=== PATIENT | male | born 1930 | race Caucasian/White ===

== ENCOUNTER 2016-07-14 00:02 | Observation (INO) | payer MEDICARE, BC ==
[2016-07-14] VITALS (11 sets, daily range): BP systolic 118–155; BP diastolic 59–90; PULSE 68–88; RESP 16–20; TEMP 97.7–98.7; O2SAT 94–99
[~2016-07-14] VITALS: Ht 182.9 cm; Wt 85.2 kg
[~2016-07-14 00:02] MED LIST: ALTA1.256 PO; ASPI81TA82 PO; CENTTAB9 PO; CO Q30CA3 OR; RIVA20 PO; ROSU5 PO
[2016-07-14] MEDS ORDERED: SODIUM CHLOR 0.9% 1000 ML INJ 1,000 ML IV SCH (02:48)
[2016-07-14] MEDS ORDERED: ONDANSETRON HCL 4 MG/2 ML VIAL IVP ONE (03:00)
[2016-07-14] MEDS ORDERED: SODIUM CHLORIDE 0.9% FLUSH 10 ML FLUSH IVF PRN ×2 (03:00→04:00)
[2016-07-14 03:20] LABS: AUTOMATED NEUTROPHIL # 5.3 TH/MM3 (1.8-7.7); BASOPHIL # 0.1 TH/MM3 (0-0.2); BASOPHIL % 1.6 % (0.0-2.0); EOSINOPHIL # 0.2 TH/MM3 (0-0.4); EOSINOPHIL % 2.1 % (0.0-4.0); HEMATOCRIT 41.5 % (39.0-51.0); LYMPH % 17.1 % (9.0-44.0); LYMPHOCYTE # 1.2 TH/MM3 (1.0-4.8); MEAN CELL VOLUME 90.9 FL (80.0-100.0); MEAN CORPUSCULAR HEMOGLOBIN 30.6 PG (27.0-34.0); MEAN CORPUSCULAR HGB CONC 33.7 % (32.0-36.0); MONO % 5.4 % (0.0-8.0); NEUT % 73.8 % (16.0-70.0); PLATELET COUNT 148 TH/MM3 (150-450); RED BLOOD COUNT 4.57 MIL/MM3 (4.50-5.90); RED CELL DISTRIBUTION WIDTH 13.2 % (11.6-17.2); WHITE BLOOD COUNT 7.2 TH/MM3 (4.0-11.0)
[2016-07-14 03:25] LABS: HEMO FLAGS AUTO DIFF
[2016-07-14 03:33] LABS: CHLORIDE 107 MEQ/L (98-107); POTASSIUM 3.8 MEQ/L (3.5-5.1); SODIUM (NA) 142 MEQ/L (136-145)
--- NOTE | 2016-07-14 03:35 | RADHPO ---
EXAM DATE/TIME: 07/14/2016 03:12 [place] COMPARISON: No previous studies available for comparison. INDICATIONS : Shortness of breath. MEDICAL HISTORY : Cardiovascular disease. Hypertension Hypercholesterolemia. SURGICAL HISTORY : CABG. Coronary artery stent. ENCOUNTER: Initial ACUITY: 1 day PAIN SCORE: 0/10 LOCATION: Bilateral chest FINDINGS: A single view of the chest demonstrates the lungs to be symmetrically aerated without evidence of mas s, infiltrate or effusion. The cardiomediastinal contours are unremarkable. Evidence of previous car diothoracic surgery. Osseous structures are intact. CONCLUSION: No acute intrathoracic disease. Madi Marrufo MD on July 14, 2016 at 3:33 Board Certified Radiologist. This report was verified electronically.
[2016-07-14 03:37] LABS: ANION GAP 8 MEQ/L (5-15); APTT (PATIENT) 36.6 SEC (24.3-30.1); BICARBONATE 27.2 MEQ/L (21.0-32.0); BLOOD UREA NITROGEN 23 MG/DL (7-18); INTERNATIONAL NORMALIZED RATIO 1.3 RATIO; PROTHROMBIN TIME - PATIENT 14.5 SEC (9.8-11.6)
[2016-07-14 03:40] LABS: ALT (GPT) 38 U/L (12-78); AST (GOT) 34 U/L (15-37); GLOMERULAR FILTRATION RATE 72 ML/MIN (>89)
[2016-07-14 03:41] LABS: PLATELET ESTIMATE SMEAR NORMAL (NORMAL); PLATELET MORPHOLOGY NORMAL (NORMAL); SCAN/DIFF AUTO DIFF CONFIRMED; TOTAL BILIRUBIN ADULT 0.5 MG/DL (0.2-1.0)
[2016-07-14 03:43] LABS: ALKALINE PHOSPHATASE 93 U/L (45-117)
--- NOTE | 2016-07-14 03:55 | PD ---
HPI Chief Complaint: Bleeding Time Seen by Provider: 02:48 Travel History International Travel<30 days: No Contact w/Intl Traveler<30days: No Traveled to known affect area: No History of Present Illness HPI 85-year-old male presents to the emergency department by private transportation the care of his spouse for evaluation of rectal bleeding noted Saturday evening. Patient states he underwent elective colonoscopy by his colorectal surgeon Dr. John on Saturday. Patient states he takes Xarelto for history of atrial fibrillation and CAD. Patient states he did not take his Xarelto on Saturday in anticipation of his Saturday procedure but restarted the medication on Saturday evening. Patient did not have any bleeding per rectum on Saturday or but noted red blood per rectum on Saturday evening. Last dose of Xarelto was evening. Patient's had no shortness of breath no sweats no nausea no vomiting no near-syncope or syncope. Patient presents at this time due to rectal bleeding. Patient denies other concerns or complaints no fever no chills no abdominal pain. PFSH Past Medical History Narrative Medical Atrial fibrillation CAD dyslipidemia hypertension colonoscopy with polypectomy CABG; no tobacco use; nursing notes reviewed Hx Anticoagulant Therapy: Yes Cardiac Catheterization: Yes Cardiovascular Problems: Yes High Cholesterol: Yes Coronary Artery Disease: Yes Diminished Hearing: No Hypertension: Yes Medical other: Yes (COLONOSCOPY 07/10/16) ?: Not Past Surgical History Coronary Artery Bypass Graft: Yes Coronary Stent: Yes Social History Alcohol Use: No Tobacco Use: No Substance Use: No Allergies-Medications (Allergen,Severity, Reaction): Coded Allergies: No Known Allergies (Unverified , 11/21/15) Reported Meds & Prescriptions Reported Meds & Active Scripts Active Reported Xarelto (Rivaroxaban) 20 Mg Tab 20 Mg PO DAILY Altace (Ramipril) 10 Mg Cap 10 Mg PO DAILY Centrum (Multiple Vitamins W/ Minerals) 1 Tab 1 Tab PO DAILY Co Q-10 (Coenzyme Q10 (Ubidecarenone)) 30 Mg Cap Aspirin 81 Mg Tabdr 81 Mg PO DAILY Review of Systems Except as stated in HPI: all other systems reviewed are Neg Physical Exam Narrative GENERAL: Well developed well-nourished male in no acute distress no respiratory distress SKIN: Warm and dry. HEAD: Normocephalic. EYES: No scleral icterus. No injection or drainage. NECK: Supple, trachea midline. No JVD or lymphadenopathy. CARDIOVASCULAR: Regular rate and rhythm without murmurs, gallops, or rubs. RESPIRATORY: Breath sounds equal bilaterally. No accessory muscle use. GASTROINTESTINAL: Abdomen soft, non-tender, nondistended. Rectal exam: Red blood at the buttock cleft and sphincter therefore digital exam not performed: No fissure or prolapsed hemorrhoids. MUSCULOSKELETAL: No cyanosis, or edema. BACK: Nontender without obvious deformity. No CVA tenderness. Data Data Last Documented VS Vital Signs Date Time Temp Pulse Resp B/P Pulse Ox O2 Delivery O2 Flow Rate FiO2 07/14/16 03:15 73 16 139/80 76 16 147/84 88 16 129/77 07/14/16 03:00 98 Nasal Cannula 2 07/14/16 00:24 97.7 Orders Complete Blood Count With Diff (07/14/16 02:48) Comprehensive Metabolic Panel (07/14/16 02:48) Prothrombin Time / Inr (Pt) (07/14/16 02:48) Act Partial Throm Time (Ptt) (07/14/16 02:48) Urinalysis - C+S If Indicated (07/14/16 02:48) Type And Screen (07/14/16 02:48) Chest, Single Ap (07/14/16 02:48) Ecg Monitoring (07/14/16 02:48) Iv Access Insert/Monitor (07/14/16 02:48) Oximetry (07/14/16 02:48) Ondansetron Inj (Zofran Inj) (07/14/16 03:00) Sodium Chlor 0.9% 1000 Ml Inj (Ns 1000 M (07/14/16 02:48) Sodium Chloride 0.9% Flush (Ns Flush) (07/14/16 03:00) Electrocardiogram (07/14/16 ) Orthostatic Vital Signs (07/14/16 02:48) Admit Order (Ed Use Only) (07/14/16 ) ^ Saline Lock (07/14/16 03:51) Resp Oxygen Manny C Titrat 1-4 L (07/14/16 ) Notify Dr: Other (07/14/16 03:51) Sodium Chloride 0.9% Flush (Ns Flush) (07/14/16 09:00) Sodium Chloride 0.9% Flush (Ns Flush) (07/14/16 04:00) Labs Laboratory Tests Test 07/14/16 03:00 White Blood Count 7.2 TH/MM3 Red Blood Count 4.57 MIL/MM3 Hemoglobin 14.0 GM/DL Hematocrit 41.5 % Mean Corpuscular Volume 90.9 FL Mean Corpuscular Hemoglobin 30.6 PG Mean Corpuscular Hemoglobin 33.7 % Concent Red Cell Distribution Width 13.2 % Platelet Count 148 TH/MM3 Mean Platelet Volume 9.2 FL Neutrophils (%) (Auto) 73.8 % Lymphocytes (%) (Auto) 17.1 % Monocytes (%) (Auto) 5.4 % Eosinophils (%) (Auto) 2.1 % Basophils (%) (Auto) 1.6 % Neutrophils # (Auto) 5.3 TH/MM3 Lymphocytes # (Auto) 1.2 TH/MM3 Monocytes # (Auto) 0.4 TH/MM3 Eosinophils # (Auto) 0.2 TH/MM3 Basophils # (Auto) 0.1 TH/MM3 CBC Comment AUTO DIFF Differential Comment AUTO DIFF CONFIRMED Platelet Estimate NORMAL Platelet Morphology Comment NORMAL Red Cell Morphology Comment NORMAL Prothrombin Time 14.5 SEC Prothromb Time International 1.3 RATIO Ratio Activated Partial 36.6 SEC Thromboplast Time Sodium Level 142 MEQ/L Potassium Level 3.8 MEQ/L Chloride Level 107 MEQ/L Carbon Dioxide Level 27.2 MEQ/L Anion Gap 8 MEQ/L Blood Urea Nitrogen 23 MG/DL Creatinine 0.99 MG/DL Estimat Glomerular Filtration 72 ML/MIN Rate Random Glucose 108 MG/DL Calcium Level 9.0 MG/DL Total Bilirubin 0.5 MG/DL Aspartate Amino Transf 34 U/L (AST/SGOT) Alanine Aminotransferase 38 U/L (ALT/SGPT) Alkaline Phosphatase 93 U/L Total Protein 7.6 GM/DL Albumin 3.5 GM/DL Blood Type O POSITIVE Antibody Screen NEGATIVE Blood Bank Comment [facility] Medical Decision Making Medical Screen Exam Complete: Yes Emergency Medical Condition: Yes Medical Record Reviewed: Yes Interpretation(s) Last Impressions Chest X-Ray 07/14/16 0248 Signed Impressions: Service Date/Time: Thursday, July 14, 2016 03:12 - CONCLUSION: No acute intrathoracic disease. Madi Marrufo MD CBC & BMP Diagram 07/14/16 03:00 Vital Signs Date Time Temp Pulse Resp B/P Pulse Ox O2 Delivery O2 Flow Rate FiO2 07/14/16 03:15 73 16 139/80 76 16 147/84 88 16 129/77 07/14/16 03:00 88 16 155/90 98 Nasal Cannula 2 07/14/16 02:05 100 Room Air 07/14/16 01:50 87 16 148/82 97 07/14/16 00:24 97.7 83 16 135/79 96 Differential Diagnosis Rectal bleeding, coagulopathy, viscus perforation Narrative Course Patient placed on senior sales engineer IV access obtained specimen collected and sent for resulting; orthostatic measurements performed Patient with episode of red blood per rectum with clots in the emergency department no diaphoresis no dizziness no shortness of breath no chest pain; patient rating a hemoglobin no further bleeding Hemoglobin 14 case discussed with patient's colorectal surgeon Dr. John who would like patient admitted to his service at [facility] discussed possible reversal of Xarelto use does not want to give patient 2 syndrome at this time as no further bleeding and will recheck hemoglobin intermittently whether or not patient will need to have repeat colonoscopy. Patient resting comfortably no further red blood per rectum no abdominal pain vital signs stable awaiting for transfer to [facility] here to transport patient to [facility] no further bleeding per rectum noted Physician Communication Physician Communication discussed with Dr John --admit to [facility] to his service Diagnosis Primary Impression: Rectal bleeding Additional Impression: S/P colonoscopy with polypectomy Admitting Information Admitting Physician Requests: Observation Tammie Milton MD July 14, 2016 03:55
[2016-07-14] MEDS ORDERED: XARE20TA PO (04:15)
[2016-07-14] MEDS ORDERED: MULT-6 PO (04:15)
[2016-07-14] MEDS ORDERED: ASPI1TAB69 PO (04:15)
[2016-07-14] MEDS ORDERED: ALTA10CA10 PO (04:15)
[2016-07-14] MEDS ORDERED: CO Q30CA (04:15)
[2016-07-14 10:20] LABS: BLOOD, URINE NEG (NEG); GLUCOSE,URINE NEG (NEG); KETONE, URINE NEG (NEG); MUCUS URINE FEW /lpf (OCC); NITRITE,URINE NEG (NEG); PH, URINE 6.5 (5.0-8.5); URINE COLOR LIGHT-YELLOW (YELLW/STRAW)
[2016-07-14 10:21] LABS: COMMENT (UR) CULT NOT INDICATED; CULTURE IF INDICATED CULT NOT INDICATED
[2016-07-14] MEDS: 1/2 NS + KCL 20 MEQ INJ 1,000 ML IV SCH ×2 (12:32→23:55)
[2016-07-14] MEDS: SODIUM CHLORIDE 0.9% FLUSH 10 ML FLUSH IV FLUSH SCH ×2 (12:32→21:00)
--- NOTE | 2016-07-14 13:42 | EKG ---
Date Performed: 07/14/2016 Time Performed: 03:04:04 PTAGE: 85 years EKG: Atrial fibrillation ST junctional depression is nonspecific Compared to previous tracing, t he patient has developed atrial fibrillation with a controlled ventricular response. Abnormal ECG PREVIOUS TRACING : 05/05/2010 05.57 DOCTOR: Luana Anders Interpretating Date/Time 07/14/2016 13:41:35
[2016-07-14 14:30] LABS: AUTOMATED NEUTROPHIL # 3.1 TH/MM3 (1.8-7.7); BASOPHIL % 0.7 % (0.0-2.0); EOSINOPHIL # 0.1 TH/MM3 (0-0.4); EOSINOPHIL % 2.2 % (0.0-4.0); HEMO FLAGS DIFF FINAL; LYMPH % 30.2 % (9.0-44.0); LYMPHOCYTE # 1.6 TH/MM3 (1.0-4.8); MEAN CELL VOLUME 91.7 FL (80.0-100.0); MEAN CORPUSCULAR HGB CONC 32.7 % (32.0-36.0); MONO % 7.1 % (0.0-8.0); NEUT % 59.8 % (16.0-70.0); PLATELET COUNT 152 TH/MM3 (150-450); RED BLOOD COUNT 4.25 MIL/MM3 (4.50-5.90); WHITE BLOOD COUNT 5.1 TH/MM3 (4.0-11.0)
[2016-07-15] VITALS (7 sets, daily range): BP systolic 91–132; BP diastolic 57–75; PULSE 68–87; RESP 16–21; TEMP 96–98.8; O2SAT 92–98
[2016-07-15] MEDS: RAMIPRIL 5 MG CAP PO SCH (09:00)
--- NOTE | 2016-07-15 09:36 | HHI.PR ---
Subjective Remarks C/R Surg afebrile, VSS latrell PO no BRB overnight Objective - Vital Signs Date Time Temp Pulse Resp B/P Pulse Ox O2 Delivery O2 Flow Rate FiO2 07/15/16 07:55 97.8 78 16 91/57 92 07/14/16 19:45 21 07/14/16 05:19 Nasal Cannula 2.00 Result Diagram: 07/14/16 1400 07/14/16 0300 Objective Remarks PE alert Abd - soft, flat, no BRBPR A/P Assessment and Plan Imp: stable bleeding slowling incr PO poss dc home Tarun John MD July 15, 2016 09:36
[2016-07-15] MEDS: SODIUM CHLORIDE 0.9% FLUSH 10 ML FLUSH IV FLUSH SCH ×2 (10:43→21:18)
[2016-07-15] MEDS: ASPIRIN EC 81 MG TABEC PO SCH (10:43)
[2016-07-15] MEDS: 1/2 NS + KCL 20 MEQ INJ 1,000 ML IV SCH ×2 (11:50→23:02)
[2016-07-16 04:22] VITALS: BP 111/70; PULSE 77; RESP 20; TEMP 98; O2SAT 95
--- NOTE | 2016-07-16 07:09 | MH ---
cc: KT ALEGRE M.D. DATE OF ADMISSION: 07/14/2016 ADMITTING DIAGNOSIS Rectal bleeding after polypectomy. HISTORY OF PRESENT ILLNESS Mr. Miller is an 85-year-old male who underwent colonoscopy and polypectomy of a rather large polyp of the rectum. It did appear to be a benign polyp. The patient had been on anticoagulation with Xarelto for atrial fibrillation but it was held the day of the procedure. He had no bleeding on Saturday, Saturday and . Last evening on Xarelto he started to notice some bright red blood per rectum. He had several episodes of rectal bleeding and then came to the emergency room in [place] for additional evaluation. He has been hemodynamically stable but has had continued bright red blood per rectum. He has not taken his Xarelto for the last 48 hours. He denies any abdominal pain. No syncope. No rectal prolapse. The patient has been eating without difficulty. PAST MEDICAL HISTORY 1. Atrial fibrillation. 2. Hypertension. 3. Recent colonoscopy with polypectomy. 4. Status post coronary bypass. MEDICATIONS Please see admitting list. ALLERGIES None to medications. SOCIAL HISTORY Denies alcohol abuse. No current tobacco use. PHYSICAL EXAMINATION GENERAL: A very pleasant, tall older male in no acute distress. HEENT: Remarkable for pink dry membranes, non-icteric sclera. NECK: Supple without gross adenopathy. CHEST: Relatively clear. Symmetrical expanding. HEART: Slightly irregular rhythm. ABDOMEN: Soft and benign. RECTAL: Anal inspection reveals some hemorrhoid tissues but no real fissures or fistula or much prolapse. Some blood on the anoderm. Digital exam revealed an empty rectal vault with blood on the finger. EXTREMITIES: No cyanosis or clubbing. Minimal pedal edema. LABORATORY STUDIES Admitting hemoglobin was 14.0, platelet count was adequate. Electrolytes were pretty unremarkable. INR was 1.3. IMPRESSION/PLAN Rectal bleeding status post polypectomy on Xarelto. Xarelto has been held and hopefully the bleeding should slow and taper. Will keep him on a liquid diet and observe over the next several hours. If continued bleeding, he may require a sigmoidoscopy or exam under anesthesia for cauterization of the polypectomy site. The risks, benefits and alternatives were discussed in length with the patient and his family. Will continue to monitor his hemoglobin and keep him at bed rest for the present time. MD MAGED López /7:23 PM /7:01 AM
[2016-07-16 07:48] VITALS: BP 109/65; PULSE 78; RESP 18; TEMP 98; O2SAT 94
[2016-07-16] MEDS: RAMIPRIL 5 MG CAP PO SCH (08:52)
[2016-07-16] MEDS: SODIUM CHLORIDE 0.9% FLUSH 10 ML FLUSH IV FLUSH SCH (08:58)
[2016-07-16] MEDS: ASPIRIN EC 81 MG TABEC PO SCH (08:58)
[2016-07-16 11:41] VITALS: BP 124/61; PULSE 70; RESP 20; TEMP 98.3; O2SAT 95
[2016-07-16 15:57] VITALS: BP 118/71; PULSE 77; RESP 20; TEMP 98; O2SAT 96
== END 2016-07-16 21:17 | disposition home or self-care (01) ==
LOC: PHED 00:02 → PHEDA 03:53 → NEPFCDU 07:05
PROVIDERS: ADMIT Colon & Rectal Surgery; ATTEND Colon & Rectal Surgery
DX: K91.840 Postprocedural hemorrhage of a digestive system organ or structure following a digestive system procedure (principal); I48.91 Unspecified atrial fibrillation; I25.10 Atherosclerotic heart disease of native coronary artery without angina pectoris; I10 Essential (primary) hypertension; E78.5 Hyperlipidemia, unspecified; E78.00 Pure hypercholesterolemia, unspecified; Z95.1 Presence of aortocoronary bypass graft; Z79.01 Long term (current) use of anticoagulants; Z79.82 Long term (current) use of aspirin; Y83.8 Other surgical procedures as the cause of abnormal reaction of the patient, or of later complication, without mention of misadventure at the time of the procedure
CPT/HCPCS: 71010; 80053; 81001; 85025; 85610; 85730; 86850; 86900; 86901; 93005; 96374; 99285; G0378; J2405; J7030